=== PATIENT | male | born 2005 ===

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

== ENCOUNTER 2023-09-25 10:06 | Emergency (ER) | payer OTHER, SELFPAY ==
[2023-09-25 10:25] VITALS: BP 110/57; PULSE 75; RESP 20; TEMP 37.2; O2SAT 94; BMI 20.9
[2023-09-25 11:02] LABS: Appearance Urine Clear; Color Urine Yellow; Glucose Urine UA Negative (Negative); Leukocyte Esterase Urine Negative (Negative); Nitrite Urine Negative (Negative); Urine Blood Negative (Negative); Urine Ketones Negative (Negative); Urine Protein Negative (Neg-Trace)
--- NOTE | 2023-09-25 11:11 | ED_ITS ---
HPI - Male Genitourinary General Chief complaint: Urogenital-Male Stated complaint: Pain when urinating Time Seen by Provider: 09/25/23 10:30 Source: patient Mode of arrival: ambulatory Limitations: no limitations History of Present Illness HPI Narrative: Patient is a 17-year-old male who presents emergency department for evaluation of dysuria, admits to having recent unprotected intercourse. He denies any sores or lesions, denies any penile discharge, scrotal swelling, fevers, chills. No associated abdominal pain, back pain, nausea, vomiting, diarrhea. He declines genital examination. Related Data Previous Rx's ?Medication ?Instructions ?Recorded doxycycline hyclate 100 mg capsule 100 mg PO BID #14 caps 09/25/23 Allergies Allergy/AdvReac Type Severity Reaction Status Date / Time No Known Allergies Allergy Unverified 09/25/23 10:27 Review of Systems Review of Systems: Yes all other systems are reviewed and are negative PMFSH Past Medical History Attestation statement: The following information was validated with the patient. Source: old records reviewed Medical History No known health problems Social History Social History Patient Tobacco Use Status: Never used Tobacco Advance Directives: No Advance Directives Information Provided: Yes Do you have a plan to hurt others: No Plan Physical Exam Vital Signs: Vital Signs: Last Vital Signs Temp 98.9 F 09/25/23 10:25 Pulse 75 09/25/23 10:25 Resp 20 09/25/23 10:25 BP 110/57 L 09/25/23 10:25 Pulse Ox 94 09/25/23 10:25 O2 Del Method Room Air 09/25/23 10:25 BMI result Body Mass Index 20.9 Appearance: Alert.?Oriented to person, place and time. No acute distress.?Normal affect. Eyes: Pupils equal, round and reactive to light.? ENT: Pharynx normal.?? Neck: Normal inspection.? Neck supple.?? CVS: Heart sounds normal. Normal heart rate and rhythm.? Pulses normal.?? Respiratory: No respiratory distress.? Lung sounds clear to auscultation bilaterally?? Abdomen: Soft and non-tender. Normoactive bowel sounds. Urogenital: Declines examination Skin: Skin warm and dry.? Normal skin color.? Extremities: No lower extremity edema.? Neuro: Moves all extremities spontaneously. Sensation intact bilaterally. Ambulates with normal steady gait. Medical Decision Making Medical Decision Making [facility] Narrative: Patient is a 17-year-old male presents emergency department for evaluation of dysuria in the setting of recent unprotected intercourse as per HPI. Urinalysis is without compelling evidence of urinary tract infection, no history of nephrolithiasis, no microscopic hematuria to suggest pain secondary to stone. Declines genital examination but denies any open sores lesions penile discharge or swelling. Has no associated gastrointestinal complaints, abdominal examination is benign. Will treat prophylactically for chlamydia and gonorrhea pending testing, advised that he will receive a call back with any positive results. Stable for discharge Differential Diagnosis Differential Diagnoses: The differential diagnosis associated with the presentation includes (See narrative above) Admission/Observation Consideration of admission/observation: Escalation of care including admission/observation considered Lab Data [facility] Lab Attestation statement: I reviewed the patient's lab results. (See narrative above) Labs: Lab Results 09/25/23 Range/Units 10:55 Urine Color Yellow Urine Appearance Clear Urine pH 7.0 (5.0-9.0) Ur Specific [place] 1.020 (1.005-1.025) Urine Protein Negative (Neg-Trace) mg/dL Urine Glucose (UA) Negative (Negative) mg/dL Urine Ketones Negative (Negative) mg/dL Urine Blood Negative (Negative) Urine Nitrite Negative (Negative) Ur Leukocyte Esterase Negative (Negative) Urine RBC 0-2 (0-2) /HPF Urine WBC 6-10 H (0-5) /HPF Ur Squamous Epith Cells 0-2 (0-2) /HPF Urine Bacteria None Seen (None Seen) Hyaline Casts 0-2 (0-2) /LPF External Record Review External record reviewed: Outpatient record Prescription Management I considered prescription management with: Antibiotic Discharge Plan Discharge Clinical Impression: Dysuria Patient Disposition: Home, Self-Care Instructions: Dysuria (ED) Additional Instructions: You were treated prophylactic the today for chlamydia/gonorrhea. If your testing results come back positive you will receive a call from the hospital. A prescription for doxycycline was sent to your pharmacy, please complete the entire course. On doxycycline, do not take pills immediately before going to bed and swallow pills with plenty of water. Avoid direct sunlight, iron, antacids, and Pepto Bismol. Call your provider if you develop new ringing in your ears, new problems hearing, dizziness, difficulty swallowing, rash, abdominal discomfort, nausea, or diarrhea.? Please follow-up with your primary care doctor for persistent symptoms. Prescriptions: New doxycycline hyclate 100 mg capsule 100 mg PO BID Qty: 14 0RF Referrals: Scott Sanchez MD [Primary Care Provider] - Print Language: Malawian
[2023-09-25 11:15] LABS: Bacteria Urine None Seen (None Seen); Hyaline Casts Urine 0-2 /LPF (0-2); RBC Urine 0-2 /HPF (0-2); Squamous Epithelial Cell Urine 0-2 /HPF (0-2); UACC Culture Trigger YES
[2023-09-25] MEDS: cefTRIAXone sodium 500 MG, Lidocaine HCl 1 % MPF 1 ML IM (11:25)
[2023-09-25 11:38] VITALS: BP 110/57; PULSE 75; RESP 20; TEMP 37.2; O2SAT 94
[2023-09-25 12:33] LABS: CT PCR NOT DETECTED (Not Detect.); NG PCR NOT DETECTED (Not Detect.)
== END 2023-09-25 11:39 | disposition home or self-care (01) ==
PROVIDERS: Emergency Provider Emergency Medicine; PCP Pediatrics
DX: R30.0 Dysuria (principal); Z79.899 Other long term (current) drug therapy; Z20.2 Contact with and (suspected) exposure to infections with a predominantly sexual mode of transmission
CPT/HCPCS: 81001; 87086; 87491; 87591; 96372; 99282; 99284; J0696

== ENCOUNTER 2023-10-26 18:38 | Emergency (ER) | payer OTHER, SELFPAY ==
[2023-10-26 19:16] VITALS: BP 109/56; PULSE 60; RESP 16; TEMP 36.7; O2SAT 97; BMI 21.5
--- NOTE | 2023-10-26 19:16 | ED.GENADULT ---
HPI - General Adult General Stated complaint: tooth pain Time Seen by Provider: 10/26/23 19:19 Source: patient Mode of arrival: ambulatory Limitations: no limitations History of Present Illness ED Provider: Sue MEIER HPI narrative: This is a 17-year-old male presenting with acute on chronic right lower dental pain he is scheduled to see his dentist on Tuesday however the pain is very severe, he is not currently on antibiotics he reports he needs a root canal. Denies changes in voice, fevers, chills, difficulty swallowing, nausea, vomiting, neck pain, cheek pain, facial swelling. Related Data Previous Rx's ?Medication ?Instructions ?Recorded doxycycline hyclate 100 mg capsule 100 mg PO BID #14 caps 09/25/23 amoxicillin 875 mg-potassium 1 tab PO BID 7 days #14 tabs 10/26/23 clavulanate 125 mg tablet naproxen 500 mg tablet 500 mg PO BID #14 tabs 10/26/23 Allergies Allergy/AdvReac Type Severity Reaction Status Date / Time No Known Allergies Allergy Verified 10/26/23 19:18 Review of Systems Review of Systems: Yes all other systems are reviewed and are negative [facility] Past Medical History Attestation statement: The following information was validated with the patient. Source: old records reviewed and nursing notes reviewed Medical History No known health problems Social History Social History Patient Tobacco Use Status: Never used Tobacco Physical Exam ED Vital Signs: vss Appearance: Alert.? Oriented X3.? No acute distress.? Head: Normocephalic, atraumatic, no step-offs or deformities Eyes: Pupils equal, round and reactive to light.? ENT: Pharynx normal.? Poor dentition throughout, fractured right lower molar, uvula midline speaking in full sentences controlling secretions well. Neck: Normal inspection.? Neck supple.? CVS: Normal heart rate and rhythm.? Pulses normal.? Respiratory: No respiratory distress.? Breath sounds normal.? Abdomen: Soft and nontender.? Skin: Skin warm and dry.? Normal skin color.? Normal skin turgor.? Extremities: No lower extremity edema.? No calf ttp. 5/5 strength to bilateral upper and lower extremities Neuro: Oriented X 3.? No motor deficit.? No sensory deficit. CN 2-12 intact Course Course Course Narrative: This is an RME done by SAUD Wilson: Additional HPI, ROS, PE not included below will be deferred to primary provider. Appearance: Alert.? Oriented X3.? No acute cardiopulmonary distress distress.? Head: Normocephalic, atraumatic, no step-offs or deformities ENT: Pharynx normal.??External ears normal, TMs normal bilaterally and EAC's normal. No pain with manipulation of external ears bilaterally. No mastoid tenderness. Neck: Normal inspection.? Neck supple.? CVS: Pulses normal.? Respiratory: No respiratory distress.? Abdomen: Soft and nontender.? Skin: ? Normal skin color. Extremities: 5/5 strength to bilateral upper and lower extremities Back: No midline tenderness, no C-spine tenderness, full range of motion, No CVA tenderness bilaterally Neuro: Oriented X 3.? No motor deficit.? No sensory deficit. Reevaluation(s) Reevaluation #1: Educated patient on diagnosis and treatment plan, answered all question, patient verbalizes understanding. At this time patient will be discharged home, advised to return with new or worsening symptoms. Educated on worrisome signs and symptoms and when to return. At this time I feel comfortable discharge home. Time: 19:21 Medical Decision Making Medical Decision Making [facility] Narrative: 17-year-old male presents with dental pain acute on chronic scheduled to see his dentist on Tuesday however pain was severe so he came in today. Has not taken anything for pain. On exam Pharynx normal.? Poor dentition throughout, fractured right lower molar, uvula midline speaking in full sentences controlling secretions well. History and physical exam concerning for poor oral hygiene, dental fracture, caries. Unlikely dental abscess, epiglottitis, retropharyngeal abscess, acute threat to airway, acute respiratory distress Plan will discharge with antibiotics and naproxen. Differential Diagnosis Differential Diagnoses: The differential diagnosis associated with the presentation includes History and physical exam concerning for poor oral hygiene, dental fracture, caries. Unlikely dental abscess, epiglottitis, retropharyngeal abscess, acute threat to airway, acute respiratory distress Admission/Observation Consideration of admission/observation: Escalation of care including admission/observation considered No indication External Record Review External record reviewed: Outpatient record Prescription Management I considered prescription management with: Antibiotic Critical Care Time Critical Care Time Critical Care Time: No Discharge Plan Discharge Clinical Impression: Pain, dental Patient Disposition: Home, Self-Care Instructions: Toothache (ED) Additional Instructions: Take your medications as prescribed. If you were prescribed antibiotics today, it is important that you take your medication to their entirety, do not skip any doses, do not finish them early. Follow-up with your primary care provider this week. Return to the emergency department with new or worsening symptoms. Such as fevers, chills, chest pain, shortness of breath, nausea, vomiting, dizziness, headache, vision changes, lethargy In case of emergency call 911 Please follow-up with your dentist and go to the appointment on Tuesday. Prescriptions: New amoxicillin-pot clavulanate 875-125 mg tablet 1 tab PO BID 7 Days Qty: 14 0RF naproxen 500 mg tablet 500 mg PO BID Qty: 14 0RF No Action doxycycline hyclate 100 mg capsule 100 mg PO BID Qty: 14 0RF Referrals: Scott Sanchez MD [Primary Care Provider] - 2 days Stand Alone Forms: Work/School Release Print Language: Korean
[2023-10-26 19:25] VITALS: BP 109/56; PULSE 60; RESP 16; TEMP 36.7; O2SAT 97
== END 2023-10-26 19:36 | disposition home or self-care (01) ==
LOC: HO.ED 19:27
PROVIDERS: Emergency Provider Internal Medicine; PCP Pediatrics
DX: K08.89 Other specified disorders of teeth and supporting structures (principal)
CPT/HCPCS: 99282; 99283